=== PATIENT | female | born 1960 | race Caucasian/White ===

== ENCOUNTER 2017-07-09 09:20 | Emergency (ER) | payer MEDICAID, SELFPAY ==
[2017-07-09 09:22] VITALS: BP 152/107; PULSE 89; RESP 16; TEMP 36.8; O2SAT 100; BMI 28.5
--- NOTE | 2017-07-09 09:28 | RAD_ITS ---
STUDY: X-RAY CHEST REASON FOR EXAM: Female, 56 years old. Chest pain. TECHNIQUE: Single AP portable view of the chest. COMPARISON: None. FINDINGS: EKG electrodes are seen. The lungs are clear and expanded. There is no demonstrated pleural abnormality. Normal size heart. Normal mediastinum and ttaiana. Normal visualized pulmonary arteries. Normal visualized aortic arch and descending thoracic aorta. There are diffuse degenerative changes of the visualized thoracic spine. Normal visualized ribs, clavicles, and shoulders. There is no demonstrated abnormality of the visualized soft tissue structures of the upper abdomen. RAD/Chest 1 View (Portable) IMPRESSION: Normal x-ray examination of the chest. Electronically Signed: Alex Wilhelm MD at 9:55 EST Tel [phone], Service support ,
--- NOTE | 2017-07-09 09:28 | EKG12_ITS ---
Test Reason : CHEST PAIN Blood Pressure : / mmHG Vent. Rate : 085 BPM Atrial Rate : 085 BPM P-R Int : 142 ms QRS Dur : 090 ms QT Int : 382 ms P-R-T Axes : 057 018 043 degrees QTc Int : 454 ms Normal sinus rhythm Normal ECG Confirmed by SARAH MAIN, ISAIAS ([id number]), manager editorial MELANY CONTI ([id number] on 07/11/2017 1:09:26 PM Referred By: TIERRA/VENANCIO Confirmed By:ISAIAS SMITH MD
[2017-07-09 09:29] VITALS: O2SAT 99
[2017-07-09 09:36] LABS: Absolute Lymphocyte Count 3.78 X10^3/ul (0.83-4.51); Absolute Neutrophil Count 2.5 X10^3/uL (2.0-7.7); Basophil# 0.02 X10^3/uL; Basophil% 0.3 % (0-1); Eosinophil# 0.06 X10^3/uL; Eosinophils% 0.9 % (0-5); Hematocrit 41.1 % (37-47); Hemoglobin 13.2 g/dl (12.0-15.0); Lymphocyte # 3.78 X10^3/ul (4.0); Mean Corp Hgb Conc 32.1 g/gl (32-36); Mean Corpuscular Hgb 31.3 pg (27.0-32.0); Mean Corpuscular Volume 97.4 fL (81-99); Mean Platelet Vol. 9.3 fl (6.2-12.0); Monocyte# 0.32 X10^3/uL; Monocyte% 4.8 % (0-10); Neutrophil # 2.45 X10^3/uL (2.7-7.7); Platelet Count 273 K/mm3 (150-450); RBC Distribution Width CV 12.3 % (11.6-14.6); RBC Distribution Width SD 43.9 fl (35.1-43.9); Red Blood Count 4.22 M/mm3 (4.2-5.4); White Blood Count 6.6 K/mm3 (4.4-11.0)
[2017-07-09 09:38] LABS: POSITIVE COUNT NO; POSITIVE DIFFERENTIAL NO; POSITIVE MORPHOLOGY NO
--- NOTE | 2017-07-09 09:38 | ED.VISSUMM ---
- ER Visit Summary Date of Service: 07/09/17 Chief Complaint: Left lower chest pain History of Present Illness: The patient is a 56 F hx. of mild CAD for which she had a heart cath done approximately a year ago at [place]. Did not need stents at that time. She has never had an MA. No prior stents or CABG. States today at rest he had left-sided chest pain that was sharp and stabbing. Started approximately half an hour prior to arrival at 9 AM. Got worse and decided to come in the ER to have it evaluated. She does have a history of a hiatal hernia. States she has had pain like this before this was a little bit more intense but wanted evaluated. She denies any history of DVT or PE. No risk factors. No leg swelling. Or calf pain. Physical Examination: Appearing middle-aged female. Vital signs are stable afebrile. Pulse ox is 100% on room air no signs of hypoxia. HEENT exam is unremarkable. Neck nontender no JVD. Lungs clear to auscultation bilaterally. Heart regular rate and rhythm no murmur. Chest wall nontender. Abdomen is soft and nontender. Normal bowel sounds without peritoneal signs. She is moving all 4 extremities. Neurovascular intact. Calves nontender without edema. No cords. She has full range of motion of both upper and lower extremities. Neurologic exam is normal. Back is nontender. Test Results: Undergo cardiac workup. Her EKG shows a sinus rhythm a rate of 85 with no acute signs of MA or ischemia. No significant change from a EKG done in 2010. Chest x-ray normal cardiac silhouette and mediastinum was read by myself the radiologist. CBC normal. BMP normal. Troponin normal. We were able to obtain the cardiac cath results from [facility]. The test was done on 08/29/16. She had minor luminal irregularities at that time. Emergency Department Course and Treatment: She will be treated with p.o. Pepcid. My clinical suspicion for cardiac etiology is not very high. Treatment Plan: Exam patient was feeling better the pain is come back more intense. She will be given morphine. A second EKG will be obtained. Clinically I do not feel this to be cardiac. We will get a second EKG and if she is doing better she will be discharged home. Disposition: Discharge Impression: Acute atypical chest pain History of a hiatal hernia. Prior cardiac catheterization less than one year ago showing minor luminal irregularities This note was generated with [employer] dictation software. It may contain incorrect words, spelling, and punctuation that were not noted in review of the chart prior to signing ED Disposition - Plan for ED Patient: Chief Complaint: Chest Pain Referrals: Geovanni Bolaños [Primary Care Provider] -
--- NOTE | 2017-07-09 09:41 | ED.DCSUM_ITS ---
- ER Visit Summary Date of Service: 07/09/17 Chief Complaint: Left lower chest pain History of Present Illness: The patient is a 56 F hx. of mild CAD for which she had a heart cath done approximately a year ago at [facility]. Did not need stents at that time. She has never had an RI. No prior stents or CABG. States today at rest he had left-sided chest pain that was sharp and stabbing. Started approximately half an hour prior to arrival at 9 AM. Got worse and decided to come in the ER to have it evaluated. She does have a history of a hiatal hernia. States she has had pain like this before this was a little bit more intense but wanted evaluated. She denies any history of DVT or PE. No risk factors. No leg swelling. Or calf pain. Physical Examination: Appearing middle-aged female. Vital signs are stable afebrile. Pulse ox is 100% on room air no signs of hypoxia. HEENT exam is unremarkable. Neck nontender no JVD. Lungs clear to auscultation bilaterally. Heart regular rate and rhythm no murmur. Chest wall nontender. Abdomen is soft and nontender. Normal bowel sounds without peritoneal signs. She is moving all 4 extremities. Neurovascular intact. Calves nontender without edema. No cords. She has full range of motion of both upper and lower extremities. Neurologic exam is normal. Back is nontender. Test Results: Undergo cardiac workup. Her EKG shows a sinus rhythm a rate of 85 with no acute signs of RI or ischemia. No significant change from a EKG done in 2010. Chest x-ray normal cardiac silhouette and mediastinum was read by myself the radiologist. CBC normal. BMP normal. Troponin normal. We were able to obtain the cardiac cath results from [facility]. The test was done on 08/29/16. She had minor luminal irregularities at that time. Emergency Department Course and Treatment: She will be treated with p.o. Pepcid. My clinical suspicion for cardiac etiology is not very high. Treatment Plan: Exam patient was feeling better the pain is come back more intense. She will be given morphine. A second EKG will be obtained. Clinically I do not feel this to be cardiac. We will get a second EKG and if she is doing better she will be discharged home. Disposition: Discharge Impression: Acute atypical chest pain History of a hiatal hernia. Prior cardiac catheterization less than one year ago showing minor luminal irregularities This note was generated with [employer] dictation software. It may contain incorrect words, spelling, and punctuation that were not noted in review of the chart prior to signing ED Disposition - Plan for ED Patient: Chief Complaint: Chest Pain Referrals: Geovanni Bolaños [Primary Care Provider] -
[2017-07-09] MEDS: Famotidine 20 MG Tablet 40 MG PO (09:42)
[2017-07-09 09:54] LABS: Anion Gap 9 (5-15); BUN 17 mg/dL (7-18); BUN/Creat Ratio 25.6 RATIO (10-20); Chloride 103 mmol/L (98-107); Creatinine, Serum 0.66 mg/dL (0.55-1.02); EST Glomerular Filtration Rate 98 mL/min (>60); Est Glom Filt Rate - Afr Amer 118 mL/min (>60); Estimated Creatinine Clearance 83.17 ml/min; Glucose 94 mg/dL (74-106); Potassium 3.5 mmol/L (3.5-5.1); Sodium Level 139 mmol/L (136-145)
--- NOTE | 2017-07-09 10:19 | EKG12_ITS ---
Test Reason : REPEAT Blood Pressure : / mmHG Vent. Rate : 069 BPM Atrial Rate : 069 BPM P-R Int : 152 ms QRS Dur : 092 ms QT Int : 406 ms P-R-T Axes : 046 015 030 degrees QTc Int : 435 ms Normal sinus rhythm Normal ECG Confirmed by SARAH MAIN, ISAIAS ([id number]), editor magazine MELANY CONTI ([id number]) on 07/11/2017 1:09:41 PM Referred By: TIERRA Confirmed By:ISAIAS SMITH MD
--- NOTE | 2017-07-09 10:21 | ED.DEP ---
ED Disposition - Plan for ED Patient: Disposition: Home or Assisted Living Chief Complaint: Chest Pain Instructions: ED Chest Pain Atypical Unkn Cause, ED GERD Referrals: Geovanni Bolaños [Primary Care Provider] - 3-5 Days if not improving Additional Instructions: Your cardiac workup was negative today. There are no signs of heart attack. Clinically I suspect this is secondary to her hiatal hernia and reflux. Continue current medications and follow-up your primary care physician to be reassessed.
[2017-07-09 10:58] VITALS: BP 120/79; PULSE 71; RESP 18; O2SAT 96
[2017-07-09 11:08] VITALS: BP 124/79; PULSE 74; RESP 18; O2SAT 98
== END 2017-07-09 11:09 | disposition home or self-care (01) ==
PROVIDERS: Emergency Provider Emergency Medicine; Family Provider Family Medicine; PCP Family Medicine
DX: R07.89 Other chest pain (principal); I25.10 Atherosclerotic heart disease of native coronary artery without angina pectoris; Z95.5 Presence of coronary angioplasty implant and graft
CPT/HCPCS: 71045; 80048; 84484; 85025; 93005; 96374; 99285; A4216

== ENCOUNTER 2018-03-09 14:38 | Emergency (ER) | payer MEDICAID, SELFPAY ==
[2018-03-09 14:39] VITALS: BP 160/88; PULSE 76; RESP 16; TEMP 36.7; O2SAT 98; BMI 27.8
--- NOTE | 2018-03-09 15:30 | CT_ITS ---
STUDY: CTA OF THE BRAIN REASON FOR EXAM: Female, 57 years old. Severe left-sided headache. RADIATION DOSAGE (If Supplied By Facility): CTDIvol = ( 27.29 ) mGy, DLP = ( 1190.30 ) mGycm TECHNIQUE: CT angiography was performed with a multi-detector CT scanner. Data acquisition was obtained from the skull base through the vertex following intravenous administration of 100 ml of Isovue-370. MIP images were reconstructed from the axial data set. Post-processing of the angiographic images was performed, with multiplanar reformation and 3D reconstruction. Individualized dose optimization techniques were used for this CT. COMPARISON: None. FINDINGS: Normal bilateral petrous carotid arteries. Normal right cavernous carotid artery with a normal supraclinoid bifurcation. Normal left cavernous carotid artery with a normal supraclinoid bifurcation. Normal A1 segment of the right anterior cerebral artery. Normal A1 segment of the left anterior cerebral artery. Normal intact anterior communicating artery (ACOM). Normal bilateral A2 segments of the anterior cerebral arteries. Normal M1 and M2 segments of the right middle cerebral artery, with a normal M1 bifurcation. Normal M1 and M2 segments of the left middle cerebral artery, with a normal M1 bifurcation. There is non-visualization of the right posterior communicating artery (PCOM). There is non-visualization of the left posterior communicating artery (PCOM). Normal left vertebral artery. The distal most right vertebral artery is diminutive, particularly beyond the takeoff of the posterior inferior cerebellar artery (PICA) branch. Normal basilar artery with a normal basilar bifurcation. The visualized bilateral superior cerebellar (SCA) arteries are normal. Normal P1, P2 and visualized P3 segments of the bladder posterior cerebral arteries. There is no demonstrated aneurysm of the nez perce of [place]. There is no demonstrated abnormality of the visualized brain. CT/CTA Head W/WO Contrast IMPRESSION: Normal intracranial arterial circulation without a demonstrated aneurysm or hemodynamically significant stenosis. Electronically Signed: Enrique Lovett MD at 16:34 EDT , Service support ,
--- NOTE | 2018-03-09 15:40 | ED.DCSUM_ITS ---
- ER Visit Summary Date of Service: 03/09/18 Chief Complaint: Left-sided ear pain and headache History of Present Illness: The patient is a 57 F poorly around 300 this morning she was in bed asleep but woke up with severe left ear and left-sided head pain. She states now she has a headache. She went to [facility] earlier today. They diagnosed her with a perforated eardrum had her follow-up with ENT. [facility] saw her earlier this afternoon did not feel that she had a perforated eardrum and one further evaluation done in the ER. She does state now she has a significant headache. She denies any trauma. She is on no blood thinners. She denies any trauma to her ear. No fever. No neck pain. Physical Examination: Middle-aged female no acute distress. Vital signs are stable afebrile. Initial blood pressure is 160/88. H EENT exam is a small amount of blood in the left canal but the eardrum appears normal. Right TM and canal is normal. Posterior pharynx normal. She does have pain over her left TMJ and has pain with opening closing her mouth. There is no facial swelling. There is no facial droop. She has normal speech. There is no signs of trauma to her face or head. Neck nontender. No lymphadenopathy. Full range of motion. No meningismus. Lungs clear to auscultation bilaterally. Heart regular rate and rhythm no murmur. Abdomen soft nontender. She is moving all 4 extremities. Neurovascular intact. 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 Neurologically she is awake and alert. NIH score is 0. She has no focal motor or sensory deficits that I can detect. Test Results: CTA of the brain shows shows no acute abnormality. No aneurysm. No intracranial bleed. I did review the film also. It was read by the radiologist. Emergency Department Course and Treatment: Tylenol for pain. A liter of normal saline due to the amount of contrast for the CT of the brain. Treatment Plan: Repeat exam patient is doing well at 1750. Neurologic exam remains normal. She does have tenderness on her left TMJ that may or may not be the cause of her discomfort. Ice to her TMJ. Motrin for pain. Disposition: Discharge Impression: Acute left-sided headache Rule out temporomandibular joint disease This note was generated with [employer] dictation software. It may contain incorrect words, spelling, and punctuation that were not noted in review of the chart prior to signing ED Disposition - Plan for ED Patient: Chief Complaint: Ear Problem Referrals: Geovanni Bolaños MD [Primary Care Provider] -
[2018-03-09] MEDS: Acetaminophen 500 MG Tablet 1000 MG PO (16:34)
[2018-03-09 17:19] VITALS: BP 127/77; PULSE 65; RESP 18; O2SAT 100
--- NOTE | 2018-03-09 18:01 | ED.DEP ---
ED Disposition - Plan for ED Patient: Chief Complaint: Ear Problem Instructions: ED Cephalgia Unspecified, ED TMJ Syndrome Referrals: Geovanni Bolaños MD [Primary Care Provider] - As Needed Additional Instructions: Ice to your left jaw. Motrin for pain. The CAT scan of your brain was normal. This may or may not be caused by inflammation of your temporal and fibular joint (TMJ).
[2018-03-09 18:06] VITALS: RESP 18
== END 2018-03-09 18:07 | disposition home or self-care (01) ==
LOC: ED 15:46
PROVIDERS: Emergency Provider Emergency Medicine; Family Provider Family Medicine; PCP Family Medicine
DX: R51 Headache (principal)
CPT/HCPCS: 70496; 99283; J7030; Q9967

== ENCOUNTER → 2020-02-21 | Outpatient (CLI) | payer MEDICAID, SELFPAY | END | disposition home or self-care (01) | LOC: MTDU 09:58 | PROVIDERS: PCP Family Medicine; Referring Provider Otolaryngology; Visit Provider Otolaryngology | DX: Z11.59 Encounter for screening for other viral diseases (principal) | CPT/HCPCS: 87635; C9803; U0003 ==

== ENCOUNTER 2022-08-15 07:56 | Emergency (ER) | payer MEDICARE, SELFPAY ==
[2022-08-15 07:57] VITALS: BP 164/111; PULSE 93; RESP 18; TEMP 36.6; O2SAT 99; BMI 31.0
--- NOTE | 2022-08-15 08:05 | RAD_ITS ---
STUDY: X-RAY - ABDOMEN/PELVIS REASON FOR EXAM: Female, 61 years old. Constipation TECHNIQUE: Single AP view of the abdomen / pelvis. COMPARISON: None. FINDINGS: Elevation of the right hemidiaphragm. There is an abundance of fecal material throughout the colon. The visualized liver, spleen and kidneys are grossly normal in size and morphology. Normal soft tissue structures. Normal visualized osseous structures. RAD/Abdomen Single View IMPRESSION: Large amount of fecal material is seen in the colon. Electronically Signed: Alex Wilhelm MD at 8:26 EDT ,
--- NOTE | 2022-08-15 08:06 | ED.VIS.GI ---
HPI HPI - GI History of Present Illness Chief Complaint: Constipation Informant: patient Abdominal Pain/Flank Pain Onset: Weeks Context: Gradual Onset Timing: Continuous Quality: Cramping Location: Diffuse Current Severity: Mild Maximum Severity: Mild Worsened by: Nothing Relieved by: Nothing Nausea/Vomiting/Emesis GI Symptom: Positive for Nausea and Vomiting Onset: Days Quality: Positive for Nonbilious Severity: Mild Diarrhea/Melena/Hematochezia GI Symptom: Negative for Diarrhea, Melena or Hematochezia Associated Symptoms Associated Symptoms: Negative for Dysuria, Frequency, Hematuria or Urgency Narrative Narrative: 61-year-old female history of constipation. States she had very limited bowel movements for the last 3 weeks. Prior history of similar episodes. She was seen yesterday at [place] emergency department had a CAT scan labs and other showing constipation states that was unremarkable. States she has been using MiraLAX, prune juice and fiber without significant relief. She denies any fever. No dysuria. She has previously had a tubal ligation and appendectomy. Prior similar symptoms: Yes Recent Illness/Hospitalization: No PFSH PFSH Home Medications NK 03/09/18 [History Last Taken Unknown] Allergy/AdvReac Type Severity Reaction Status Date / Time gabapentin Allergy Vomiting Verified 08/15/22 08:01 Penicillins [PCN] Allergy Hives Verified 08/15/22 08:01 Social History Smoking Status: Never smoker ROS ROS ED ROS Narrative Constipation. Nausea and vomiting. Review of Systems ROS Unobtainable: Denies due to encephalopathy Constitutional Constitutional ED: Denies chills or fever(s) ENT ENT ED: Denies ear pain Cardiovascular Cardiovascular: Denies chest pain Respiratory/Chest Respiratory/Chest: Denies cough or dyspnea Gastrointestinal Gastrointestinal: Reports abdominal pain, constipation, nausea and vomiting Genitourinary Genitourinary ED: Denies dysuria or hematuria Musculoskeletal Musculoskeletal: Denies arthralgias Integumentary Denies abscess Neurologic Neurologic: Denies headache(s) Psychiatric Psychiatric: Denies anxiety Endocrine Endocrinology: Denies polydipsia or polyphagia Hematologic/Lymphatic Hematologic/Lymphatic: Denies easy bleeding Allergic/Immunologic Allergic/Immunologic ED: Denies mouth swelling or tongue swelling EXAM Physical Exam Narrative Exam Narrative: Well-appearing 61-year-old female. No acute distress. Vital signs are stable her blood pressure is elevated 164/111. She is afebrile. She does not look septic or toxic. She is not dehydrated. No distress. H EENT exam unremarkable. Moist with membranes. Neck nontender no JVD. Lungs clear to auscultation bilaterally. Heart regular rhythm no murmur rate about 90. Abdomen soft. Bloated. No peritoneal signs. No localizing tenderness. Positive bowel sounds. No hernia or mass. Moving all 4 extremities. Nontender no edema. Back nontender. Neurologic exam normal. Const Vital Signs: 08/15/22 07:57 Temperature 97.9 F Temperature Source Temporal Pulse Rate 93 Respiratory Rate 18 Blood Pressure 164/111 H Blood Pressure Mean 128 Pulse Ox 99 Oxygen Delivery Method Room Air Positive well nourished and well developed; Negative for cachectic, contractures or unkempt General Appearance ED: well developed and NAD; Negative for unkempt, cachectic, contractures or pallor Nutritional Appearance: Negative for cachectic HEENT Reports moist mucous membranes normocephalic and atraumatic; Negative for trauma or tenderness Eyes PERRL and EOMs intact bilaterally General Eye ED: Negative for pale conjunctiva or scleral icterus Neck no lymphadenopathy, supple and no JVD General: Negative for tenderness Carotids: Negative for other Lymph Lymphatic: Negative for other Resp normal respiratory effort and clear to auscultation bilaterally Effort and Inspection: Negative for respiratory distress Auscultation: Negative for rales, rhonchi or wheezes Cardio regular rate, regular rhythm, S1 normal heart sound, S2 normal heart sound and no murmurs Rate: Negative for bradycardia or tachycardic Rhythm: Negative for abnormal rhythm GI non-distended and no masses; Negative for non-tender GI Narrative: Bloated. No peritoneal signs. Positive bowel sounds. Auscultation: normoactive bowel sounds Palpation: soft and tender; Negative for guarding, rigid, hepatomegaly, splenomegaly, hernia, mass, pulsatile mass or rebound tenderness present Back/Spine no CVA tenderness General Back: Negative for CVA tenderness Cervical Spine: Negative for cervical spine tenderness Thoracic Spine / Upper Back: Negative for thoracic spinal tenderness Lumbar Spine / Lower Back: Negative for lumbar spinal tenderness Extremity full ROM General Extremety ED: Negative for edema or tenderness General Extremity: Negative for edema Neuro CN's II-XII intact bilaterally, moves all extremities and no sensory deficits noted Sensorium / Orientation: alert, oriented to person, oriented to place and oriented to time; Negative for orientation impaired or confused Motor Exam: strength 5/5 throughout Psych mental status grossly normal and thought process normal Appearance: Negative for unkempt Attitude: No agitated Mood & Affect: Negative for depressed, anxious or tearful Skin no wounds General Skin Exam: Negative for jaundice or pallor Lesions: no lesions Rashes: no rashes Trauma: Negative for abrasion Nails: Negative for discolored MDM MDM MDM Narrative Medical decision making narrative: 61-year-old with history of constipation complains of limited bowel movements the last 3 weeks. Exam is benign. KUB being obtained. She did have a significant evaluation including a CAT scan at another local emergency department yesterday. I am obtaining a KUB. Patient is tried numerous things at home for constipation without relief. She will be given a bottle of GoLytely. Drink a glass every hour until she has a bowel movement. Follow-up with your primary care physician. History & Record Review Discussion w/independent historian: Patient Radiography Diagnostic Testing: ABG single view, interpreted by myself shows significant constipation of the right colon, transverse colon and descending colon and rectum. No signs of obstruction. No air-fluid levels. No free air. I did go over the films with the patient. Discharge Plan Triage Chief Complaint: Constipation ED Provider: Marcos Young Dx/Rx/DC Orders Clinical Impression: Constipation Instructions: ED Constipation (Adult) Prescriptions: No Action NK Primary Care Provider: Geovanni Bolaños Referrals: Geovanni Bolaños MD [Primary Care Provider] - 1-2 Days if not improving Activity Restrictions/Additional Instructions: Plenty of fluids, walking, fruits, vegetables and fiber. These all help with constipation. Use the bottle of GoLytely. Drink a 4 to 8 ounce glass every hour until you have a bowel movement. Follow-up with your doctor if not improving or return if worse. Disposition Disposition: Home, Self Care
[2022-08-15] MEDS: Electrolyte Solution/Peg's 4000 ML 1000 ML PO (08:47)
== END 2022-08-15 08:49 | disposition home or self-care (01) ==
LOC: ED 08:26
PROVIDERS: Emergency Provider Emergency Medicine; PCP Family Medicine; Visit Provider Emergency Medicine
DX: K59.00 Constipation, unspecified (principal)
CPT/HCPCS: 74018; 99282